=== PATIENT | female | born 1940 | race African-American/Black ===

== ENCOUNTER 2019-03-22 13:26 | Inpatient (IN) ==
[2019-03-22] MEDS ORDERED: LACTATED RINGERS 1,000 ML IV ONE (14:09)
[2019-03-22] MEDS ORDERED: KETOROLAC 15 MG/1 ML VIAL IV PRN (15:16)
[2019-03-22] MEDS ORDERED: ALBUTEROL/IPRATROPIUM 3 ML NEB RESP TX PRN (15:16)
[2019-03-22] MEDS ORDERED: ACETAMINOPHEN 325 MG TABLET PO PRN (15:16)
[2019-03-22] MEDS ORDERED: ONDANSETRON 4 MG/2 ML VIAL IV PRN (15:16)
[2019-03-22] MEDS ORDERED: MORPHINE 4 MG/1 ML VIAL IV PRN ×2 (15:16)
[2019-03-22] MEDS ORDERED: hydrALAZINE 20 MG/1 ML VIAL IV PRN (15:26)
[2019-03-22] MEDS ORDERED: LACTATED RINGERS 1,000 ML IV SCH (15:30)
[2019-03-22] MEDS: PIPERACILLIN/TAZOBACTAM 3,375 MG in SODIUM CHLORIDE 0.9% 100 ML IV SCH (17:46)
[2019-03-22] MEDS: MAGNESIUM OXIDE 400 MG TABLET PO SCH (20:47)
[2019-03-22] MEDS: risperiDONE 1 MG TABLET PO SCH (20:47)
[2019-03-22] MEDS: amLODIPine 2.5 MG TABLET PO SCH (20:47)
[2019-03-22] MEDS: CARVEDILOL 12.5 MG TABLET PO SCH (20:48)
[2019-03-22] MEDS: SODIUM CHLORIDE 0.9% 1,000 ML IV SCH (21:51)
[2019-03-23] MEDS: PIPERACILLIN/TAZOBACTAM 3,375 MG in SODIUM CHLORIDE 0.9% 100 ML IV SCH ×2 (00:21→11:02)
[2019-03-23 04:59] LABS: Basophils % 0.1 % (0.0-0.8); Eosinophils % 0.3 % (0.00-10.9); Hematocrit 35.7 VOL% (35.7-47.0); Hemoglobin 12.6 GM/DL (12.0-16.0); Immature Granulocytes % 0.4 %; Immature Granulocytes Absolute 0.03 #; Lymphocytes # 0.7 10*3/uL (1.4-4.0); Lymphocytes % 10.2 % (21.3-54.2); Mean Corpuscular HGB Conc 35.3 GM/DL (32-36); Mean Corpuscular Volume 87.7 FL (87-102); Mean Platelet Volume 8.7 FL (9.6-12.0); Monocytes % 13.7 % (1.7-12.7); Neutrophils % 75.3 % (38.7-73.9); Platelet Count 241 T/CUMM (130-400); Red Blood Count 4.07 MC/CUMM (3.8-5.5); Red Cell Distribution Width 12.2 % (9.3-17.3); White Blood Count 7.2 T/CUMM (4-12)
[2019-03-23 05:30] LABS: Albumin 3.5 G/DL (3.4-5.0); Bilirubin,Total 0.9 MG/DL (0.2-1.0); Calcium 9.1 MG/DL (8.5-10.1); Osmolality,Calculated 253.6 MOS/KG (273-304); Total Protein 7.3 G/DL (6.4-8.3)
[2019-03-23 05:37] LABS: Microcytosis 2+
[2019-03-23 05:38] LABS: Platelet Estimate Normal
[2019-03-23] MEDS: MAGNESIUM SULF RIDER 4 GM in PREMIX 1 EACH IV PRN (06:01)
[2019-03-23] MEDS: SPIRONOLACTONE 25 MG TABLET PO SCH ×2 (08:20→08:58)
[2019-03-23] MEDS: ASPIRIN EC 81 MG TABLET PO SCH ×2 (08:21→08:59)
[2019-03-23] MEDS: LOSARTAN 50 MG TABLET PO SCH ×2 (08:21→08:59)
[2019-03-23] MEDS: ANASTROZOLE 1 MG TABLET PO SCH ×2 (08:21→08:58)
[2019-03-23] MEDS: PANTOPRAZOLE 40 MG TABLET PO SCH ×2 (08:21→08:59)
[2019-03-23] MEDS: CARVEDILOL 12.5 MG TABLET PO SCH ×3 (08:21→17:57)
[2019-03-23] MEDS: ENOXAPARIN 40 MG/0.4 ML SYRINGE SUBCUT SCH (08:59)
[2019-03-23] MEDS: SODIUM CHLORIDE 0.9% 1,000 ML IV SCH ×4 (14:49→23:05)
[2019-03-23] MEDS: risperiDONE 1 MG TABLET PO SCH (20:26)
[2019-03-23] MEDS: MAGNESIUM OXIDE 400 MG TABLET PO SCH (20:26)
[2019-03-23] MEDS: amLODIPine 2.5 MG TABLET PO SCH (20:26)
[2019-03-24 04:23] LABS: Basophils % 0.3 % (0.0-0.8); Eosinophils % 0.6 % (0.00-10.9); Hematocrit 33.3 VOL% (35.7-47.0); Hemoglobin 11.5 GM/DL (12.0-16.0); Immature Granulocytes % 0.3 %; Immature Granulocytes Absolute 0.02 #; Lymphocytes # 0.8 10*3/uL (1.4-4.0); Lymphocytes % 11.7 % (21.3-54.2); Mean Corpuscular HGB Conc 34.5 GM/DL (32-36); Mean Corpuscular Volume 89.3 FL (87-102); Mean Platelet Volume 8.6 FL (9.6-12.0); Monocytes % 14.4 % (1.7-12.7); Neutrophils % 72.7 % (38.7-73.9); Platelet Count 197 T/CUMM (130-400); Red Blood Count 3.73 MC/CUMM (3.8-5.5); Red Cell Distribution Width 12.6 % (9.3-17.3)
[2019-03-24 04:39] LABS: Calcium 8.3 MG/DL (8.5-10.1); Osmolality,Calculated 260.9 MOS/KG (273-304)
[2019-03-24] MEDS: MAGNESIUM SULF RIDER 2 GM in PREMIX 1 EACH IV PRN (05:17)
[2019-03-24] MEDS: SPIRONOLACTONE 25 MG TABLET PO SCH (09:14)
[2019-03-24] MEDS: ASPIRIN EC 81 MG TABLET PO SCH (09:15)
[2019-03-24] MEDS: ANASTROZOLE 1 MG TABLET PO SCH (09:15)
[2019-03-24] MEDS: LOSARTAN 50 MG TABLET PO SCH (09:15)
[2019-03-24] MEDS: ENOXAPARIN 40 MG/0.4 ML SYRINGE SUBCUT SCH (09:16)
[2019-03-24] MEDS: PANTOPRAZOLE 40 MG TABLET PO SCH (09:16)
[2019-03-24] MEDS: CARVEDILOL 12.5 MG TABLET PO SCH ×2 (09:25→16:44)
[2019-03-24] MEDS: POTASSIUM CHLORIDE RIDER 10 MEQ in PREMIX 1 EACH IV SCH ×4 (13:02→16:24)
[2019-03-24] MEDS: SODIUM CHLORIDE 0.9% 1,000 ML IV SCH ×2 (13:02→21:34)
[2019-03-24] MEDS: amLODIPine 2.5 MG TABLET PO SCH (20:24)
[2019-03-24] MEDS: risperiDONE 1 MG TABLET PO SCH (20:24)
[2019-03-24] MEDS: MAGNESIUM OXIDE 400 MG TABLET PO SCH (20:24)
[2019-03-25] MEDS: DEXTROSE 10% 250 ML BAG IV PRN ×2 (00:12→17:45)
[2019-03-25 05:34] LABS: Basophils % 0.4 % (0.0-0.8); Eosinophils % 0.6 % (0.00-10.9); Hematocrit 30.9 VOL% (35.7-47.0); Hemoglobin 10.6 GM/DL (12.0-16.0); Immature Granulocytes % 0.4 %; Immature Granulocytes Absolute 0.02 #; Lymphocytes % 20.7 % (21.3-54.2); Mean Corpuscular HGB Conc 34.3 GM/DL (32-36); Mean Corpuscular Volume 90.6 FL (87-102); Mean Platelet Volume 8.8 FL (9.6-12.0); Monocytes % 15.1 % (1.7-12.7); Neutrophils % 62.8 % (38.7-73.9); Platelet Count 188 T/CUMM (130-400); Red Blood Count 3.41 MC/CUMM (3.8-5.5); Red Cell Distribution Width 12.6 % (9.3-17.3); White Blood Count 4.8 T/CUMM (4-12)
[2019-03-25] MEDS: SODIUM CHLORIDE 0.9% 1,000 ML IV SCH ×2 (05:56→22:57)
[2019-03-25 05:59] LABS: Calcium 8.3 MG/DL (8.5-10.1); Osmolality,Calculated 265.4 MOS/KG (273-304)
[2019-03-25] MEDS: ANASTROZOLE 1 MG TABLET PO SCH (07:27)
[2019-03-25] MEDS: ASPIRIN EC 81 MG TABLET PO SCH (07:27)
[2019-03-25] MEDS: SPIRONOLACTONE 25 MG TABLET PO SCH (07:27)
[2019-03-25] MEDS: LOSARTAN 50 MG TABLET PO SCH (07:28)
[2019-03-25] MEDS: POTASSIUM CHLORIDE RIDER 10 MEQ in PREMIX 1 EACH IV PRN ×2 (08:45→10:23)
[2019-03-25] MEDS: CARVEDILOL 12.5 MG TABLET PO SCH ×2 (08:46→16:17)
[2019-03-25] MEDS: ENOXAPARIN 40 MG/0.4 ML SYRINGE SUBCUT SCH (08:46)
[2019-03-25] MEDS: PANTOPRAZOLE 40 MG TABLET PO SCH (08:46)
[2019-03-25] MEDS: risperiDONE 1 MG TABLET PO SCH (20:49)
[2019-03-25] MEDS: MAGNESIUM OXIDE 400 MG TABLET PO SCH (20:49)
[2019-03-25] MEDS: amLODIPine 2.5 MG TABLET PO SCH (20:49)
[2019-03-26 05:08] LABS: Basophils % 0.4 % (0.0-0.8); Eosinophils # 0.1 10*3/uL (0.0-0.87); Eosinophils % 0.9 % (0.00-10.9); Hematocrit 31.9 VOL% (35.7-47.0); Immature Granulocytes % 0.2 %; Immature Granulocytes Absolute 0.01 #; Lymphocytes # 0.9 10*3/uL (1.4-4.0); Lymphocytes % 16.3 % (21.3-54.2); Mean Corpuscular HGB Conc 34.5 GM/DL (32-36); Mean Corpuscular Volume 90.1 FL (87-102); Mean Platelet Volume 8.8 FL (9.6-12.0); Monocytes % 15.9 % (1.7-12.7); Neutrophils % 66.3 % (38.7-73.9); Platelet Count 191 T/CUMM (130-400); Red Blood Count 3.54 MC/CUMM (3.8-5.5); Red Cell Distribution Width 12.4 % (9.3-17.3); White Blood Count 5.7 T/CUMM (4-12)
[2019-03-26 05:32] LABS: Eosinophils 1 % (0-10); Hypochromasia 1+; Lymphocytes 16 % (20-55); Platelet Estimate Adequate; Segmented Neutrophils 68 % (50-85); Total Cells Counted 100
[2019-03-26 05:41] LABS: Calcium 8.7 MG/DL (8.5-10.1); Osmolality,Calculated 263.5 MOS/KG (273-304)
[2019-03-26] MEDS: SPIRONOLACTONE 25 MG TABLET PO SCH (08:50)
[2019-03-26] MEDS: ASPIRIN EC 81 MG TABLET PO SCH (08:50)
[2019-03-26] MEDS: LOSARTAN 50 MG TABLET PO SCH (08:50)
[2019-03-26] MEDS: ANASTROZOLE 1 MG TABLET PO SCH (08:50)
[2019-03-26] MEDS: PANTOPRAZOLE 40 MG TABLET PO SCH (08:51)
[2019-03-26] MEDS: ENOXAPARIN 40 MG/0.4 ML SYRINGE SUBCUT SCH (08:51)
[2019-03-26] MEDS: CARVEDILOL 12.5 MG TABLET PO SCH ×2 (08:58→16:42)
[2019-03-26] MEDS: POTASSIUM CHLORIDE 20 MEQ/15 ML UDCUP PO PRN ×3 (11:10→15:14)
[2019-03-26] MEDS: SODIUM CHLORIDE 0.9% 1,000 ML IV SCH (13:34)
[2019-03-26] MEDS: risperiDONE 1 MG TABLET PO SCH (21:40)
[2019-03-26] MEDS: MAGNESIUM OXIDE 400 MG TABLET PO SCH (21:40)
[2019-03-26] MEDS: amLODIPine 2.5 MG TABLET PO SCH (21:40)
[2019-03-27] MEDS: SPIRONOLACTONE 25 MG TABLET PO SCH ×2 (05:35→07:24)
[2019-03-27] MEDS: ANASTROZOLE 1 MG TABLET PO SCH ×2 (05:35→07:25)
[2019-03-27] MEDS: ASPIRIN EC 81 MG TABLET PO SCH ×2 (05:36→07:25)
[2019-03-27] MEDS: CARVEDILOL 12.5 MG TABLET PO SCH ×3 (05:37→16:49)
[2019-03-27] MEDS: LOSARTAN 50 MG TABLET PO SCH ×2 (05:39→07:26)
[2019-03-27] MEDS: ENOXAPARIN 40 MG/0.4 ML SYRINGE SUBCUT SCH (09:08)
[2019-03-27] MEDS: PANTOPRAZOLE 40 MG TABLET PO SCH (09:10)
[2019-03-27] MEDS ORDERED: cefOXitin 2,000 MG in SYRINGE 1 EACH IV ONE (11:22)
[2019-03-27] MEDS ORDERED: DESFLURANE 1 UNIT/15 MINUTE INH ONE (15:08)
[2019-03-27] MEDS ORDERED: TISSUE ADHESIVE 1 EACH APPLICATOR TOP ONE (15:26)
[2019-03-27] MEDS ORDERED: LIDOCAINE 1% 20 ML VIAL ONE (15:26)
[2019-03-27] MEDS ORDERED: BUPIVACAINE MPF 0.25% /EPI 30 ML VIAL ONE (15:26)
[2019-03-27] MEDS: SODIUM CHLORIDE 0.9% 1,000 ML IV SCH ×3 (16:19→18:59)
[2019-03-27] MEDS ORDERED: ALBUMIN 5% 12.5 GM/250 ML VIAL IV ONE (17:59)
[2019-03-27] MEDS ORDERED: SEVOFLURANE 1 UNIT/15 MINUTE INH ONE (18:39)
[2019-03-27] MEDS ORDERED: fentaNYL 100 MCG/2 ML VIAL ONE (18:39)
[2019-03-27] MEDS ORDERED: PHENYLEPHRINE DRIP 20 MG/250 ML PREMIX IV ONE (18:39)
[2019-03-27] MEDS ORDERED: PROPOFOL 200 MG/20 ML VIAL IV ONE (18:39)
[2019-03-27] MEDS ORDERED: ONDANSETRON 4 MG/2 ML VIAL ONE (18:40)
[2019-03-27] MEDS ORDERED: KETOROLAC 30 MG/1 ML VIAL ONE (18:40)
[2019-03-27] MEDS ORDERED: PHENYLEPHRINE 1 MG/10 ML SYRINGE IV ONE (18:40)
[2019-03-27] MEDS ORDERED: DEXAMETHASONE 4 MG/1 ML VIAL ONE (18:40)
[2019-03-27] MEDS ORDERED: ePHEDrine 50 MG/ML AMP ONE (18:40)
[2019-03-27] MEDS ORDERED: ROCURONIUM 100 MG/10 ML VIAL IV ONE (18:41)
[2019-03-27] MEDS ORDERED: LACTATED RINGERS 3,000 ML IV ONE (18:41)
[2019-03-27 18:54] LABS: Apearance,Urine CLEAR (Clear); Bilirubin,Urine Negative (Negative); Blood, Urine Negative (Negative); Glucose,Urine (UA) Negative (Negative); Ketones,Urine 5 mg/dL (Negative); Mucus,Urine Occasional /LPF (Occasional); Nitrite,Urine Negative (Negative); Protein,Urine 30 MG/DL; RBC,Urine 7 /HPF (0-4); Urine Color Yellow (Yellow); Urine Specific Gravity 1.013 (1.001-1.035); Urine Urobilinogen < 2.0 EU/DL (0.2-1.0)
[2019-03-27 19:38] LABS: Allen Test Positive; Pt O2 Delivery Device Ventilator
[2019-03-27 19:40] LABS: ABG Base Excess 2.4 MMOL/L (-2.5-2.5); ABG HCO3 26.6 MMOL/L (20-26); ABG Oxygen Saturation 99.3 % (95-100); ABG PCO2 29.8 MM HG (35-48); ABG PH 7.522 (7.35-7.45); ABG TCO2 21.6 MMOL/L (23-27)
[2019-03-27] MEDS ORDERED: LACTATED RINGERS 1,000 ML IV ONE (19:41)
[2019-03-27] MEDS: PROPOFOL 1,000 MG/100 ML BOTTLE IV SCH (20:06)
[2019-03-27] MEDS: risperiDONE 1 MG TABLET PO SCH (20:07)
[2019-03-27] MEDS: MAGNESIUM OXIDE 400 MG TABLET PO SCH (20:07)
[2019-03-27 20:38] LABS: Basophils % 0.6 % (0.0-0.8); Eosinophils % 0.6 % (0.00-10.9); Hematocrit 33.4 VOL% (35.7-47.0); Hemoglobin 11.2 GM/DL (12.0-16.0); Immature Granulocytes % 0.6 %; Immature Granulocytes Absolute 0.03 #; Lymphocytes # 0.8 10*3/uL (1.4-4.0); Lymphocytes % 16.6 % (21.3-54.2); Mean Corpuscular HGB Conc 33.5 GM/DL (32-36); Mean Corpuscular Volume 90.3 FL (87-102); Mean Platelet Volume 8.7 FL (9.6-12.0); Monocytes % 8.7 % (1.7-12.7); Neutrophils % 72.9 % (38.7-73.9); Platelet Count 220 T/CUMM (130-400); Red Cell Distribution Width 12.5 % (9.3-17.3); White Blood Count 5.1 T/CUMM (4-12)
[2019-03-27] MEDS: amLODIPine 2.5 MG TABLET PO SCH (20:53)
[2019-03-27 20:57] LABS: Calcium 7.9 MG/DL (8.5-10.1); Osmolality,Calculated 265.5 MOS/KG (273-304)
[2019-03-27 20:59] LABS: Band Neutrophils 2 % (0-10); Eosinophils 2 % (0-10); Lymphocytes 20 % (20-55); Segmented Neutrophils 70 % (50-85); Total Cells Counted 100
[2019-03-27 21:00] LABS: Platelet Estimate Adequate
[2019-03-27] MEDS ORDERED: LACTATED RINGERS 500 ML IV ONE (23:16)
[2019-03-28] MEDS: PROPOFOL 1,000 MG/100 ML BOTTLE IV SCH (03:39)
[2019-03-28] MEDS: SODIUM CHLORIDE 0.9% 1,000 ML IV SCH ×3 (03:39→20:10)
[2019-03-28 04:24] LABS: ABG HCO3 27.1 MMOL/L (20-26); ABG Oxygen Saturation 99.7 % (95-100); ABG PCO2 28.3 MM HG (35-48); ABG PH 7.547 (7.35-7.45); ABG TCO2 21.5 MMOL/L (23-27); Allen Test Positive; Pt O2 Delivery Device Ventilator
[2019-03-28 05:58] LABS: Basophils % 0.4 % (0.0-0.8); Eosinophils % 0.1 % (0.00-10.9); Hematocrit 33.3 VOL% (35.7-47.0); Hemoglobin 11.7 GM/DL (12.0-16.0); Immature Granulocytes % 1.3 %; Lymphocytes # 0.9 10*3/uL (1.4-4.0); Lymphocytes % 11.7 % (21.3-54.2); Mean Corpuscular HGB Conc 35.1 GM/DL (32-36); Mean Platelet Volume 9.9 FL (9.6-12.0); Monocytes % 7.3 % (1.7-12.7); Neutrophils % 79.2 % (38.7-73.9); Platelet Count 214 T/CUMM (130-400); Red Cell Distribution Width 12.6 % (9.3-17.3); White Blood Count 7.5 T/CUMM (4-12)
[2019-03-28 06:25] LABS: Hypochromasia 1+; Ovalocytes Slight; Platelet Estimate Adequate
[2019-03-28 06:26] LABS: Albumin 2.5 G/DL (3.4-5.0); Bilirubin,Total 0.7 MG/DL (0.2-1.0); Osmolality,Calculated 270.2 MOS/KG (273-304); Total Protein 5.4 G/DL (6.4-8.3)
[2019-03-28] MEDS: ASPIRIN EC 81 MG TABLET PO SCH (06:30)
[2019-03-28] MEDS: SPIRONOLACTONE 25 MG TABLET PO SCH (06:30)
[2019-03-28] MEDS: LOSARTAN 50 MG TABLET PO SCH (06:30)
[2019-03-28] MEDS: ANASTROZOLE 1 MG TABLET PO SCH (06:30)
[2019-03-28] MEDS: POTASSIUM CHLORIDE RIDER 20 MEQ in PREMIX 1 EACH IV PRN ×3 (06:43→15:06)
[2019-03-28] MEDS ORDERED: LACTATED RINGERS 1,000 ML IV ONE (06:59)
[2019-03-28] MEDS: PANTOPRAZOLE 40 MG TABLET PO SCH (08:18)
[2019-03-28] MEDS: CARVEDILOL 12.5 MG TABLET PO SCH ×2 (08:18→17:10)
[2019-03-28] MEDS: MAGNESIUM SULF RIDER 4 GM in PREMIX 1 EACH IV PRN (09:05)
[2019-03-28] MEDS ORDERED: DEXTROSE 10% 1,000 ML IV PRN (15:09)
[2019-03-28] MEDS ORDERED: GLUCAGON 1 MG VIAL IM PRN (15:09)
[2019-03-28] MEDS: HYDROmorphone 2 MG/1 ML VIAL IV PRN (15:35)
[2019-03-28] MEDS ORDERED: TRACE ELEMENTS (5) 1 ML, MULTIVITAMIN INJ 10 ML, INSULIN REGULAR 10 UNIT in AMINO ACIDS... IV SCH (17:00)
[2019-03-28] MEDS: INSULIN REGULAR 100 UNIT/ML SUBCUT SCH (18:21)
[2019-03-28] MEDS: amLODIPine 2.5 MG TABLET PO SCH (20:58)
[2019-03-28] MEDS: MAGNESIUM OXIDE 400 MG TABLET PO SCH (20:58)
[2019-03-28] MEDS: risperiDONE 1 MG TABLET PO SCH (20:58)
[2019-03-29] MEDS: INSULIN REGULAR 100 UNIT/ML SUBCUT SCH ×4 (02:12→18:25)
[2019-03-29 04:26] LABS: Allen Test Positive
[2019-03-29 04:28] LABS: ABG Oxygen Saturation 95.6 % (95-100); ABG PCO2 38.7 MM HG (35-48); ABG PH 7.466 (7.35-7.45); ABG PO2 76.4 MM HG (80-95); ABG TCO2 25.3 MMOL/L (23-27)
[2019-03-29 04:51] LABS: Basophils % 0.2 % (0.0-0.8); Eosinophils % 0.5 % (0.00-10.9); Hematocrit 28.5 VOL% (35.7-47.0); Hemoglobin 9.6 GM/DL (12.0-16.0); Immature Granulocytes % 0.7 %; Immature Granulocytes Absolute 0.06 #; Lymphocytes # 0.8 10*3/uL (1.4-4.0); Mean Corpuscular HGB Conc 33.7 GM/DL (32-36); Mean Corpuscular Volume 92.5 FL (87-102); Monocytes % 10.8 % (1.7-12.7); Neutrophils % 77.8 % (38.7-73.9); Platelet Count 221 T/CUMM (130-400); Red Blood Count 3.08 MC/CUMM (3.8-5.5); Red Cell Distribution Width 13.1 % (9.3-17.3); White Blood Count 8.4 T/CUMM (4-12)
[2019-03-29 05:15] LABS: Band Neutrophils 1 % (0-10); Eosinophils 2 % (0-10); Hypochromasia 1+; Lymphocytes 14 % (20-55); Platelet Estimate Adequate; Segmented Neutrophils 80 % (50-85); Total Cells Counted 100
[2019-03-29 05:21] LABS: Calcium 7.6 MG/DL (8.5-10.1); Osmolality,Calculated 280.5 MOS/KG (273-304); Prealbumin 7.8 MG/DL (20-40)
[2019-03-29] MEDS: SODIUM CHLORIDE 0.9% 1,000 ML IV SCH (06:22)
[2019-03-29] MEDS: ASPIRIN EC 81 MG TABLET PO SCH (08:15)
[2019-03-29] MEDS: CARVEDILOL 12.5 MG TABLET PO SCH ×2 (09:42→17:51)
[2019-03-29] MEDS: LOSARTAN 50 MG TABLET PO SCH (09:42)
[2019-03-29] MEDS: LANSOPRAZOLE ODT 30 MG TABLET NG SCH (09:42)
[2019-03-29] MEDS: ASPIRIN CHEW 81 MG TABLET PO SCH (09:43)
[2019-03-29] MEDS: SPIRONOLACTONE 25 MG TABLET PO SCH (09:43)
[2019-03-29] MEDS: ANASTROZOLE 1 MG TABLET PO SCH (09:43)
[2019-03-29 12:14] LABS: Hematocrit 27.7 VOL% (35.7-47.0); Hemoglobin 9.2 GM/DL (12.0-16.0)
[2019-03-29] MEDS ORDERED: DEXTROSE 10% 1,000 ML IV PRN (13:18)
[2019-03-29] MEDS: FAT EMULSION 20% 250 ML IV SCH (14:15)
[2019-03-29] MEDS: TRACE ELEMENTS (5) 1 ML, MULTIVITAMIN INJ 10 ML, INSULIN REGULAR 10 UNIT in AMINO ACIDS... IV SCH (17:30)
[2019-03-29] MEDS: amLODIPine 2.5 MG TABLET PO SCH (20:52)
[2019-03-29] MEDS: risperiDONE 1 MG TABLET PO SCH (20:52)
[2019-03-29] MEDS: MAGNESIUM OXIDE 400 MG TABLET PO SCH (20:52)
[2019-03-30] MEDS: INSULIN REGULAR 100 UNIT/ML SUBCUT SCH ×4 (01:08→18:45)
[2019-03-30 06:00] LABS: Basophils % 0.3 % (0.0-0.8); Eosinophils # 0.1 10*3/uL (0.0-0.87); Eosinophils % 0.6 % (0.00-10.9); Hematocrit 32.9 VOL% (35.7-47.0); Hemoglobin 10.9 GM/DL (12.0-16.0); Immature Granulocytes % 0.6 %; Immature Granulocytes Absolute 0.06 #; Lymphocytes % 10.2 % (21.3-54.2); Mean Corpuscular HGB Conc 33.1 GM/DL (32-36); Mean Corpuscular Volume 91.6 FL (87-102); Neutrophils % 80.3 % (38.7-73.9); Platelet Count 232 T/CUMM (130-400); Red Blood Count 3.59 MC/CUMM (3.8-5.5); Red Cell Distribution Width 12.8 % (9.3-17.3); White Blood Count 9.5 T/CUMM (4-12)
[2019-03-30 06:33] LABS: Albumin 2.4 G/DL (3.4-5.0); Bilirubin,Total 0.4 MG/DL (0.2-1.0); Calcium 8.5 MG/DL (8.5-10.1); Osmolality,Calculated 271.4 MOS/KG (273-304); Total Protein 6.3 G/DL (6.4-8.3)
[2019-03-30] MEDS: CARVEDILOL 12.5 MG TABLET PO SCH ×2 (08:38→18:45)
[2019-03-30] MEDS: SPIRONOLACTONE 25 MG TABLET PO SCH (08:39)
[2019-03-30] MEDS: ASPIRIN CHEW 81 MG TABLET PO SCH (08:39)
[2019-03-30] MEDS: LANSOPRAZOLE ODT 30 MG TABLET NG SCH (08:39)
[2019-03-30] MEDS: ANASTROZOLE 1 MG TABLET PO SCH (08:39)
[2019-03-30] MEDS: LOSARTAN 50 MG TABLET PO SCH (08:39)
[2019-03-30] MEDS: MAGNESIUM SULF RIDER 2 GM in PREMIX 1 EACH IV PRN (08:40)
[2019-03-30] MEDS: POTASSIUM CHLORIDE RIDER 10 MEQ in PREMIX 1 EACH IV PRN ×5 (08:40→15:00)
[2019-03-30] MEDS: ALBUTEROL/IPRATROPIUM 3 ML NEB RESP TX SCH ×3 (10:31→20:30)
[2019-03-30] MEDS: FAT EMULSION 20% 250 ML IV SCH (15:05)
[2019-03-30] MEDS: MULTIVITAMIN IV SCH (16:17)
[2019-03-30] MEDS: [UNRECOGNIZED DRUG - OTHER] IV SCH (16:17)
[2019-03-30] MEDS: TRACE ELEMENTS IV SCH (16:17)
[2019-03-30] MEDS: INSULIN REGULAR IV SCH (16:17)
[2019-03-30] MEDS: TRACE ELEMENTS (5) 1 ML, MULTIVITAMIN INJ 10 ML, INSULIN REGULAR 10 UNIT in AMINO ACIDS... IV SCH (16:21)
[2019-03-30] MEDS: amLODIPine 2.5 MG TABLET PO SCH (21:43)
[2019-03-30] MEDS: risperiDONE 1 MG TABLET PO SCH (21:44)
[2019-03-30] MEDS: MAGNESIUM OXIDE 400 MG TABLET PO SCH (21:44)
[2019-03-31] MEDS: ALBUTEROL/IPRATROPIUM 3 ML NEB RESP TX SCH ×4 (00:18→20:05)
[2019-03-31] MEDS: INSULIN REGULAR 100 UNIT/ML SUBCUT SCH ×4 (01:46→18:28)
[2019-03-31] MEDS: SPIRONOLACTONE 25 MG TABLET PO SCH (09:56)
[2019-03-31] MEDS: ANASTROZOLE 1 MG TABLET PO SCH (09:56)
[2019-03-31] MEDS: ASPIRIN CHEW 81 MG TABLET PO SCH (09:56)
[2019-03-31] MEDS: LOSARTAN 50 MG TABLET PO SCH (09:57)
[2019-03-31] MEDS: CARVEDILOL 12.5 MG TABLET PO SCH ×2 (09:57→17:39)
[2019-03-31] MEDS: LANSOPRAZOLE ODT 30 MG TABLET NG SCH (09:57)
[2019-03-31] MEDS: HYDROmorphone 2 MG/1 ML VIAL IV PRN (10:53)
[2019-03-31] MEDS: INSULIN REGULAR IV SCH (13:59)
[2019-03-31] MEDS: [UNRECOGNIZED DRUG - OTHER] IV SCH (13:59)
[2019-03-31] MEDS: TRACE ELEMENTS IV SCH (13:59)
[2019-03-31] MEDS: MULTIVITAMIN IV SCH (13:59)
[2019-03-31] MEDS: FAT EMULSION 20% 250 ML IV SCH (14:01)
[2019-03-31] MEDS: amLODIPine 2.5 MG TABLET PO SCH (20:51)
[2019-03-31] MEDS: MAGNESIUM OXIDE 400 MG TABLET PO SCH (20:51)
[2019-03-31] MEDS: risperiDONE 1 MG TABLET PO SCH (20:51)
[2019-04-01] MEDS: INSULIN REGULAR 100 UNIT/ML SUBCUT SCH ×4 (00:09→18:37)
[2019-04-01] MEDS: HYDROmorphone 2 MG/1 ML VIAL IV PRN ×4 (00:13→22:07)
[2019-04-01] MEDS: ALBUTEROL/IPRATROPIUM 3 ML NEB RESP TX SCH ×4 (01:20→19:15)
[2019-04-01 05:57] LABS: Calcium 8.3 MG/DL (8.5-10.1)
[2019-04-01] MEDS: LANSOPRAZOLE ODT 30 MG TABLET NG SCH (08:26)
[2019-04-01] MEDS: LOSARTAN 50 MG TABLET PO SCH (08:26)
[2019-04-01] MEDS: ASPIRIN CHEW 81 MG TABLET PO SCH (08:26)
[2019-04-01] MEDS: CARVEDILOL 12.5 MG TABLET PO SCH ×2 (08:26→17:52)
[2019-04-01] MEDS: ANASTROZOLE 1 MG TABLET PO SCH (08:26)
[2019-04-01] MEDS: SPIRONOLACTONE 25 MG TABLET PO SCH (08:26)
[2019-04-01 09:49] LABS: Basophils % 0.5 % (0.0-0.8); Eosinophils # 0.1 10*3/uL (0.0-0.87); Eosinophils % 1.2 % (0.00-10.9); Hematocrit 29.7 VOL% (35.7-47.0); Hemoglobin 9.8 GM/DL (12.0-16.0); Immature Granulocytes % 0.8 %; Immature Granulocytes Absolute 0.07 #; Lymphocytes # 1.1 10*3/uL (1.4-4.0); Lymphocytes % 12.5 % (21.3-54.2); Mean Corpuscular Volume 92.5 FL (87-102); Mean Platelet Volume 8.7 FL (9.6-12.0); Monocytes % 9.9 % (1.7-12.7); Neutrophils % 75.1 % (38.7-73.9); Platelet Count 208 T/CUMM (130-400); Red Blood Count 3.21 MC/CUMM (3.8-5.5); Red Cell Distribution Width 13.2 % (9.3-17.3); White Blood Count 8.6 T/CUMM (4-12)
[2019-04-01] MEDS: MAGNESIUM SULF RIDER 2 GM in PREMIX 1 EACH IV PRN (10:20)
[2019-04-01] MEDS: POTASSIUM CHLORIDE 20 MEQ/15 ML UDCUP PO PRN ×2 (10:20→17:25)
[2019-04-01] MEDS: MULTIVITAMIN IV SCH (12:52)
[2019-04-01] MEDS: TRACE ELEMENTS IV SCH (12:52)
[2019-04-01] MEDS: INSULIN REGULAR IV SCH (12:52)
[2019-04-01] MEDS: [UNRECOGNIZED DRUG - OTHER] IV SCH (12:52)
[2019-04-01] MEDS: FAT EMULSION 20% 250 ML IV SCH (14:39)
[2019-04-01] MEDS: MAGNESIUM OXIDE 400 MG TABLET PO SCH (21:40)
[2019-04-01] MEDS: amLODIPine 2.5 MG TABLET PO SCH (21:40)
[2019-04-01] MEDS: risperiDONE 1 MG TABLET PO SCH (21:44)
[2019-04-02] MEDS: ALBUTEROL/IPRATROPIUM 3 ML NEB RESP TX SCH ×2 (00:53→07:44)
[2019-04-02] MEDS: INSULIN REGULAR 100 UNIT/ML SUBCUT SCH ×2 (01:18→07:08)
[2019-04-02] MEDS: HYDROmorphone 2 MG/1 ML VIAL IV PRN (05:57)
[2019-04-02 06:00] LABS: Calcium 8.5 MG/DL (8.5-10.1); Osmolality,Calculated 276.2 MOS/KG (273-304)
[2019-04-02] MEDS: SPIRONOLACTONE 25 MG TABLET PO SCH (09:22)
[2019-04-02] MEDS: LOSARTAN 50 MG TABLET PO SCH (09:22)
[2019-04-02] MEDS: LANSOPRAZOLE ODT 30 MG TABLET NG SCH (09:22)
[2019-04-02] MEDS: CARVEDILOL 12.5 MG TABLET PO SCH (09:22)
[2019-04-02] MEDS: ASPIRIN CHEW 81 MG TABLET PO SCH (09:22)
[2019-04-02] MEDS: ANASTROZOLE 1 MG TABLET PO SCH (09:22)
[2019-04-02 12:52] VITALS: BP 144/87
== END 2019-04-02 13:22 | disposition home health service (06) | DRG 336 ==
LOC: EDBD → EDUNIT# → N.ED 13:26 → N.3E 14:54 → N.CC 03-27 18:24 → N.3E 03-29 17:42
PROVIDERS: ADMIT Surgery; ATTEND Surgery